=== PATIENT | female | born 1970 | race Caucasian/White ===

== ENCOUNTER 2022-01-29 18:18 | Outpatient (CLI) | payer MEDICAID ==
--- NOTE | 2022-01-30 04:09 | XRAY Report ---
PROCEDURE: Knee 2 View RT INDICATIONS: OSTEOARTHRITIS KNEE RIGHT MILD TECHNIQUE: 2 views of the right knee were acquired. COMPARISON: None. FINDINGS: Bones: No fractures or dislocations. There is mild joint space narrowing in the medial compartment. No suspicious bony lesions. Soft tissues: No joint effusion. No suspicious soft tissue calcifications. IMPRESSION: 1. Mild joint space narrowing in the medial compartment. Reviewed by: Darnell Redman MD on 01/30/2022 4:07 AM PDT Approved by: Darnell Redman MD on 01/30/2022 4:07 AM PDT Station ID: [id number]
== END 2022-01-29 18:19 | disposition home or self-care (01) ==
LOC: DI 18:18
PROVIDERS: ATTEND Physician Assistant Medical
DX: M17.11 Unilateral primary osteoarthritis, right knee (principal)